=== PATIENT | female | born 2000 | race Caucasian/White ===

== ENCOUNTER 2021-08-15 08:00 | Outpatient (CLI) | payer OTHER | END 2021-08-15 23:59 | disposition home or self-care (01) | LOC: LAB.N 08:00 | PROVIDERS: ATTEND Physician Assistant Medical | DX: R05.9 Cough, unspecified (principal); Z20.822 Contact with and (suspected) exposure to COVID-19 ==

== ENCOUNTER 2021-09-26 08:00 | Outpatient (CLI) | payer OTHER | END 2021-09-26 23:59 | LOC: LAB.N 08:00 | PROVIDERS: ATTEND Physician Assistant Medical | DX: J06.9 Acute upper respiratory infection, unspecified (principal); Z20.822 Contact with and (suspected) exposure to COVID-19 ==

== ENCOUNTER 2021-12-03 10:32 | Emergency (ER) | payer OTHER ==
--- NOTE | 2021-12-03 11:42 | ED Physician Documentation ---
PD HPI SKIN - Stated complaint Stated Complaint: SPIDER BITE ON BACK - Chief complaint Chief Complaint: Wound - History obtained from History obtained from: Patient - History of Present Illness Timing - onset: Yesterday Timing - duration: Days (10/22) Timing - details: Abrupt onset (just noted bump left scapular area appearing like pimple initially, that grew bigger through day and was very tender. squeezed some purulence out of it this morning but still red and tender. She thought maybe spider bite initially. No prior similar.), Still present Location: Back (left suprascapular area.) Quality / character: Painful, Discolored (red), Raised Associated symptoms: No: Fever, Myalgias, N/V/D Similar symptoms before: Has not had sx before Recently seen: Not recently seen Review of Systems Constitutional: denies: Fever, Chills Nose: denies: Rhinorrhea / runny nose, Congestion Throat: denies: Sore throat Respiratory: denies: Cough PD PAST MEDICAL HISTORY - Past Medical History Past Medical History: No - Past Surgical History Past Surgical History: No - Present Medications Home Medications: Ambulatory Orders Medication Instructions Recorded Confirmed Ibuprofen [Motrin] 600 mg PO TID PRN #15 tab 12/03/21 Sulfamethox/Trimeth 800/160 1 each PO BID #14 tablet 12/03/21 [Bactrim Ds 800/160] - Allergies Allergies/Adverse Reactions: Allergies Allergy/AdvReac Type Severity Reaction Status Date / Time No Known Drug Allergies Allergy Verified 12/03/21 10:40 - Social History Does the pt smoke?: No Smoking Status: Never smoker Does the pt drink ETOH?: No Does the pt have substance abuse?: No - Immunizations Immunizations are current?: Yes - POLST Patient has POLST: No PD ED PE NORMAL - Vitals Vital signs reviewed: Yes - General General: Alert and oriented X 3, No acute distress, Well developed/nourished - Cardiac Cardiac: RRR, No murmur - Respiratory Respiratory: Clear bilaterally - Derm Derm: Normal color, Warm and dry, Other (left suprascapular area with 1 1/2 cm diameter area of redness, tender and raised with slight pointing but no drainage. It is raised but no fluctuance to it. ) Results - Vitals Vitals: Vital Signs - 24 hr 12/03/21 12/03/21 10:37 11:55 Temperature 36.4 C L 36.9 C Heart Rate 95 73 Respiratory 16 16 Rate Blood Pressure 141/74 H 124/80 O2 Saturation 100 100 Oxygen O2 Source Room air PD MEDICAL DECISION MAKING - ED course Complexity details: considered differential (c/w abscess that has been mostly drained at home. No open sore. WIll treat as staph. ), d/w patient Departure - Departure Disposition: Home, Self Care Clinical Impression: Abscess of back Condition: Stable Record reviewed to determine appropriate education?: Yes Instructions: ED Staph Infec Abx Tx Only Prescriptions: Sulfamethox/Trimeth 800/160 [Bactrim Ds 800/160] 1 each PO BID #14 tablet Ibuprofen [Motrin] 600 mg PO TID PRN #15 tab PRN Reason: Pain Comments: Warm ice compresses to the area to promote softening of the skin and possible better drainage. At this point it does not seem to have still enough collected fluid to need incision and drainage right now. We should be able to treat it with antibiotics alone and anti-inflammatories. Bactrim DS twice daily for 5 to 7 days until completely resolved. Ibuprofen 3 times a day for inflammation and pain. Add Tylenol if needed. Recheck if not better over the next several days and return if worsening. I transmitted your prescriptions to [facility] pharmacy in [place]. Discharge Date/Time: 12/03/21 12:05
[2021-12-03] MEDS ORDERED: SULFAMETH/TRIMETH DS 800/160 MG TABLET PO STA (11:50)
[2021-12-03] MEDS ORDERED: IBUPROFEN 600 MG TABLET PO STA (11:50)
[2021-12-03 11:56] VITALS: BP 124/80
== END 2021-12-03 12:05 | disposition home or self-care (01) ==
LOC: ED 10:32
DX: L02.212 Cutaneous abscess of back [any part, except buttock and flank] (principal)
CPT/HCPCS: 99282; A9270

== ENCOUNTER 2022-07-10 12:40 | Outpatient (CLI) | payer OTHER ==
[2022-07-10 18:08] LABS: BASOPHILS % (AUTO) 0.7 %; EOSINOPHILS # (AUTO) 0.1 10^3/uL (0.0-0.7); EOSINOPHILS % (AUTO) 1.5 %; HCT - HEMATOCRIT 41.9 % (37.0-47.0); HGB - HEMOGLOBIN 14.2 g/dL (12.0-16.0); LYMPHOCYTES # (AUTO) 1.6 10^3/uL (1.5-3.5); LYMPHOCYTES % (AUTO) 29.2 %; MEAN CORPUSCULAR HEMOGLOBIN 30.9 pg (27.0-31.0); MEAN CORPUSCULAR HGB CONC 33.9 g/dL (32.0-36.0); MEAN CORPUSCULAR VOLUME 91.1 fL (81.0-99.0); MEAN PLATELET VOLUME 10.4 fL (7.9-10.8); MONOCYTES # (AUTO) 0.4 10^3/uL (0.0-1.0); MONOCYTES % (AUTO) 6.6 %; NEUTROPHILS # (AUTO) 3.4 10^3/uL (1.5-6.6); NEUTROPHILS % (AUTO) 61.8 %; PLT - PLATELET COUNT 255 10^3/uL (130-450); WHITE BLOOD COUNT 5.4 x10^3/uL (4.8-10.8)
[2022-07-10 18:36] LABS: THYROID STIMULATING HORMONE 1.34 uIU/mL (0.34-5.60)
[2022-07-10 18:37] LABS: FREE T4 (FREE THYROXINE) 1.01 ng/dL (0.58-1.64)
[2022-07-10 18:56] LABS: ALBUMIN 4.4 g/dL (3.2-5.5); ALBUMIN/GLOBULIN RATIO 1.5 (1.0-2.2); ALKALINE PHOSPHATASE 51 IU/L (42-121); ALT ALANINE AMINOTRANSFERASE 13 IU/L (10-60); AST ASPARTATE AMINOTRANSFERASE 21 IU/L (10-42); BILIRUBIN,TOTAL 0.9 mg/dL (0.2-1.0); BUN - BLOOD UREA NITROGEN 12 mg/dL (6-20); CALCIUM 9.3 mg/dL (8.5-10.3); CARBON DIOXIDE - CO2 24 mmol/L (21-32); CHLORIDE 103 mmol/L (101-111); CHOLESTEROL 171 mg/dL; GFR - MDRD 71 (>89); GLUCOSE 88 mg/dL (70-100); HDL CHOLESTEROL 57 mg/dL; LDL CHOLESTEROL,CALCULATED 85 mg/dL; LDL/HDL RATIO 1.5 (<4.4); POTASSIUM 4.2 mmol/L (3.5-5.0); SODIUM 135 mmol/L (135-145); TOTAL PROTEIN 7.3 g/dL (6.7-8.2); TRIGLYCERIDES 145 mg/dL; VLDL CHOLESTEROL 29 mg/dL
== END 2022-07-10 12:41 | disposition home or self-care (01) ==
LOC: LAB.N 12:40
PROVIDERS: ATTEND Nurse Practitioner
DX: R53.83 Other fatigue (principal); Z13.220 Encounter for screening for lipoid disorders
CPT/HCPCS: 36415; 80053; 80061; 83721; 84439; 84443; 85025

== ENCOUNTER 2022-08-24 11:50 | Outpatient (CLI) | payer OTHER | END 2022-08-24 11:51 | disposition home or self-care (01) | LOC: LAB.N 11:50 | PROVIDERS: ATTEND Nurse Practitioner | DX: Z33.1 Pregnant state, incidental (principal) | CPT/HCPCS: 36415; 84702 ==

== ENCOUNTER 2022-08-31 14:50 | Outpatient (CLI) | payer OTHER ==
--- NOTE | 2022-09-03 17:22 | Ultrasound Report ---
PROCEDURE: OB First Trimester w/TV INDICATIONS: OUTSIDE/PRIOR DATING DATA: Last menstrual period (LMP): Unknown. LMP-based estimated date of delivery (PAPO): Unknown. First dating scan (date and location): 08/31/2022. Estimated date of delivery (PAPO) from first dating scan: Not applicable. TECHNIQUE: Real-time scanning was performed of the fetus and maternal pelvic organs, with image documentation. Endovaginal scanning was also performed to better visualize the fetus and maternal ovaries. COMPARISON: None FINDINGS: Intrauterine gestational sac is identified measuring 8 mm corresponding to 5 weeks 4 days. Yolk sac i s present. No definitively identified pole. No identified crown-rump length. No heart tones. Maternal organs: Ovaries demonstrate a left corpus luteal cyst.. IMPRESSION: Intrauterine gestational sac with yolk sac. No pole, crown-rump length or heart tones. Gestatio nal age of 5 weeks 4 days, short interval ultrasound follow-up is recommended to evaluate for pregnan cy progression as well as correlation with beta hCG level. No visualized ectopic . Reviewed by: Kaylen Prieto MD on 09/03/2022 5:20 PM PST Approved by: Kaylen Prieto MD on 09/03/2022 5:20 PM PST Station ID: [id number]
== END 2022-08-31 14:51 | disposition home or self-care (01) ==
LOC: DI 14:50
PROVIDERS: ATTEND Nurse Practitioner
DX: Z34.91 Encounter for supervision of normal pregnancy, unspecified, first trimester (principal); Z3A.01 Less than 8 weeks gestation of pregnancy
CPT/HCPCS: 36415; 84144; 84702

== ENCOUNTER 2023-01-14 10:30 | Outpatient (CLI) | payer OTHER ==
[2023-01-14 17:39] LABS: HCT - HEMATOCRIT 38.1 % (37.0-47.0); HGB - HEMOGLOBIN 12.4 g/dL (12.0-16.0); MEAN CORPUSCULAR HEMOGLOBIN 31.5 pg (27.0-31.0); MEAN CORPUSCULAR HGB CONC 32.5 g/dL (32.0-36.0); MEAN CORPUSCULAR VOLUME 96.7 fL (81.0-99.0); MEAN PLATELET VOLUME 10.3 fL (7.9-10.8); RED BLOOD COUNT 3.94 10^6/uL (4.20-5.40); WHITE BLOOD COUNT 9.8 x10^3/uL (4.8-10.8)
== END 2023-01-14 10:31 | disposition home or self-care (01) ==
LOC: LAB.N 10:30
PROVIDERS: ATTEND Nurse Practitioner Obstetrics & Gynecology
DX: Z36.9 Encounter for antenatal screening, unspecified (principal)
CPT/HCPCS: 36415; 82950; 85027

== ENCOUNTER 2023-04-27 09:02 | Inpatient (IN) | payer OTHER ==
[2023-04-27] MEDS ORDERED: METHYLERGONOVINE 0.2 MG/ML VIAL IM PRN (09:26)
[2023-04-27] MEDS ORDERED: miSOPROStoL 200 MCG TABLET PR PRN (09:26)
[2023-04-27] MEDS ORDERED: NIFEdipine 10 MG CAPSULE PO PRN (09:26)
[2023-04-27] MEDS ORDERED: hydrALAZINE INJ 20 MG/ML VIAL IVP PRN ×2 (09:26)
[2023-04-27] MEDS ORDERED: miSOPROStoL 200 MCG TABLET BC PRN (09:26)
[2023-04-27] MEDS ORDERED: lidocaine 1% 20 ML MDV ID PRN (09:26)
[2023-04-27] MEDS ORDERED: fentaNYL 100 MCG/2 ML VIAL IVP PRN (09:26)
[2023-04-27] MEDS ORDERED: LABETALOL 20 MG/4 ML SYRINGE IVP PRN ×3 (09:26)
[2023-04-27] MEDS ORDERED: OXYTOCIN/SODIUM CHLORIDE 500 ML IV PRN (09:26)
[2023-04-27] MEDS ORDERED: OXYTOCIN 10 UNIT/ML VIAL IM PRN (09:26)
[2023-04-27] MEDS ORDERED: CARBOPROST TROMETHAMINE 250 MCG/ML AMP IM PRN (09:26)
[2023-04-27] MEDS ORDERED: TRANEXAMIC ACID IN NACL 1,000 MG/100 ML BAG IV PRN (09:26)
[2023-04-27] MEDS ORDERED: SODIUM CHLORIDE FLUSH 0.9% 10 ML SYRINGE IVP PRN (09:26)
[2023-04-27] MEDS ORDERED: TERBUTALINE 1 MG/ML VIAL SUBQ PRN (09:26)
[2023-04-27 09:48] LABS: BASOPHILS % (AUTO) 0.1 %; HCT - HEMATOCRIT 37.4 % (37.0-47.0); HGB - HEMOGLOBIN 13.2 g/dL (12.0-16.0); LYMPHOCYTES % (AUTO) 4.2 %; MEAN CORPUSCULAR HGB CONC 35.3 g/dL (32.0-36.0); MEAN CORPUSCULAR VOLUME 90.6 fL (81.0-99.0); MEAN PLATELET VOLUME 10.5 fL (7.9-10.8); MONOCYTES % (AUTO) 3.3 %; NEUTROPHILS % (AUTO) 91.9 %; PLT - PLATELET COUNT 224 10^3/uL (130-450); RED BLOOD COUNT 4.13 10^6/uL (4.20-5.40); RED CELL DISTRIBUTION WIDTH 12.2 % (12.0-15.0); WHITE BLOOD COUNT 21.9 x10^3/uL (4.8-10.8)
--- NOTE | 2023-04-27 09:53 | HISTORY & PHYSICAL EXAMINATION ---
Admit History - Visit Reason Visit Reason: Contractions - : 1 Parity: 0 Premature: 0 Ectopic: 0 : 0 Care: positive: [facility] Risk/History: positive: None Complications This : positive: None Smoking Status: Never smoker - Mother's Labs Mother's Blood Type: positive: A Mother's RH: positive: Positive GBS: positive: Group B Step Negative Rubella Status: positive: Immune - HPI Diagnosis/Indication for NST: Other Vital Signs Temperature 36.8 C 04/27/23 09:13 Heart Rate 80 04/27/23 09:13 Respiratory Rate 18 04/27/23 09:13 Blood Pressure 126/74 04/27/23 09:13 Temperature 36.8 C 04/27/23 09:13 Heart Rate 80 04/27/23 09:13 Respiratory Rate 18 04/27/23 09:13 Blood Pressure 126/74 04/27/23 09:13 O2 Saturation If not protocol: Oxygen Flow, liters/minute - NST Procedure NST Procedure Start Time 23:53 Stop Time 00:20 Meds/Allgy - Home Medications Home Medications: Ambulatory Orders Medication Instructions Recorded Confirmed Ibuprofen [Motrin] 600 mg PO TID PRN #15 tab 12/03/21 Sulfamethox/Trimeth 800/160 1 each PO BID #14 tablet 12/03/21 [Bactrim Ds 800/160] - Allergies Allergies/Adverse Reactions: Allergies Allergy/AdvReac Type Severity Reaction Status Date / Time No Known Drug Allergies Allergy Verified 12/03/21 10:40 Review of Systems - Constitutional Constitutional: denies: Fatigue, Fever, Chills, Malaise - Eyes Eyes: denies: Blurred vision, Spots in vision, Dipolpia - Cardiovascular Cariovascular: denies: Irregular heart rate, Palpitations, Chest pain, Edema - Respiratory Respiratory: denies: Cough, Wheezing, SOB at rest - Gastrointestinal Gastrointestinal: reports: Nausea, Vomiting. denies: Constipation, Diarrhea - Genitourinary Genitourinary: denies: Dysuria - Integumentary Integumentary: denies: Rash, Pruritis - Neurological Neurological: denies: Headache - Psychiatric Psychiatric: reports: Anxiety. denies: Depression Physical - Abdominal Exam Vital Signs: Temp Pulse Resp BP Pulse Ox O2 Flow Rate 36.8 C 80 18 126/74 04/27/23 09:13 04/27/23 09:13 04/27/23 09:13 04/27/23 09:13 Contraction Frequency (min/apart): 3-5 Contraction Intensity: positive: Strong Uterine Resting Tone: positive: Soft - Monitoring Heart Rate Baseline: 140 Strip Review: positive: Category I - Presentation Presentation: positive: Vertex - Vaginal Exam Membranes: positive: Membranes intact Dilation (in cm): 8 Effacement (%): 90 Station: positive: 0 - Speculum Exam Speculum Exam Performed: positive: No Plan for Labor - Plan For Labor I expect patient to be DC'd or transferred within 96 hours.: Yes Plan for Labor: HPI: Edy is a 22yo @ 39.3wks gestation by LMP c/w first trimester ultrasound who presents to [facility] with complaints of contractions which have increased in frequency and intensity since 2am this morning after being discharged from triage with no cervical change. Upon arrival her cervix was noted to be 8/90/0 and vertex with intact membranes. She has been a patient of [facility] for the duration of her which has remained uncomplicated. She is will be admitted to [facility] for expectant management and she is requesting and epidural at this time. She is supported by her Nick today. 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 Never had a pap smear. No hx STI. 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 Partner in [employer]. Sexual behavior: Monogamous with male partner Nick. Stopped drinking alcohol due to . Denies current use of tobacco, marijuana or other recreational drugs. Reports that she is safe in current relationship. Family Hx: DM (mother); thyroid disease (aunt, grandmother); depression (mother, sister); mental illness (mother, grandmother) Denies family history of congenital anomalies, Cystic Fibrosis or chromosomal abnormalities. Allergies: NKDA Medications: PNV course: A positive, antibody negative Rubella immune, varicella immune Genetic screening - negative Thyroid function - WNL COVID vaccine - received and booster received beginning of the third trimester Tdap vaccine- received 3rd trimester Influenza vaccine- 08/2022 FAS WNL. Posterior placenta, no previa. 3VC. FLASH WNL. Size c/w dating (EFW 57%tile) Glucola 116 GBS negative Physical exam: Normocephalic, atraumatic Heart RRR w/o M/G/R Lungs CTAB Abdomen gravid, soft, nontender FHR baseline 140s, moderate variability, + accels, no decels Contractions palpate strong every 3-5 minutes with soft resting tone SVE 8/90/0. Vertex with intact membranes. Bilateral LE's no edema. Mood is good. Assessment: 22yo @ 39.3wks gestation by LMP c/w 1st trimester ultrasound Active labor FHR Category I GBS negative Plan: Admit to [facility] for expectant management. Anesthesia notified to present for placement of epidural per maternal request. Continuous monitoring. Anticipate .
[2023-04-27 09:55] LABS: SLIDE REVIEW? Indicated
[2023-04-27 09:57] LABS: ABNORMAL LYMPHS % (MANUAL) 0 %
[2023-04-27] MEDS ORDERED: ROPIVACAINE 0.2% 200 MG/100 ML BAG EP ONE (09:59)
[2023-04-27] MEDS ORDERED: LACTATED RINGERS 1,000 ML IV SCH (10:00)
[2023-04-27] MEDS: SODIUM CHLORIDE FLUSH 0.9% 10 ML SYRINGE IVP SCH (10:05)
[2023-04-27 10:15] LABS: BAND NEUTROPHILS % (MANUAL) 2 %; LYMPHOCYTES # (MANUAL) 0.9 10^3/uL (1.5-3.5); LYMPHOCYTES % (MANUAL) 4 %; MONOCYTES # (MANUAL) 0.2 10^3/uL (0.0-1.0); NEUTROPHILS # (MANUAL) 20.8 10^3/uL (1.5-6.6)
[2023-04-27 10:16] LABS: DIFFERENTIAL COMMENT MANUAL DIFFERENTIAL
[2023-04-27 10:17] LABS: PLATELET ESTIMATE, MANUAL NORMAL (130-450,000) (NORMAL); PLATELET MORPHOLOGY NORMAL APPEARANCE (NORMAL); RBC MORPHOLOGY (MULTIPLE) NORMAL APPEARANCE (NORMAL); WBC MORPHOLOGY (MULTIPLE) NORMAL APPEARANCE (NORMAL)
[2023-04-27] MEDS ORDERED: METOCLOPRAMIDE 10 MG/2 ML VIAL IVP PRN (10:58)
[2023-04-27] MEDS ORDERED: NALBUPHINE 10 MG/ML AMP IVP PRN (10:58)
[2023-04-27] MEDS ORDERED: ROPIVACAINE 0.2% 200 MG/100 ML BAG EP PRN (10:58)
[2023-04-27] MEDS ORDERED: NALOXONE 0.4 MG/ML VIAL IVP PRN (10:58)
[2023-04-27] MEDS ORDERED: ONDANSETRON 4 MG/2 ML VIAL IVP PRN (10:58)
[2023-04-27] MEDS ORDERED: diphenhydrAMINE INJ 50 MG/ML VIAL IVP PRN (10:58)
[2023-04-27] MEDS ORDERED: ePHEDrine 50 MG/ML VIAL IVP PRN (10:58)
--- NOTE | 2023-04-27 11:04 | ANESTHESIA ---
Pre-Anesthesia VS, & Labs - Diagnosis active labor - Procedure labor epidural Vital Signs: Temp Pulse Resp BP Pulse Ox O2 Flow Rate 36.8 C 80 18 126/74 04/27/23 09:13 04/27/23 09:13 04/27/23 09:13 04/27/23 09:13 Height: 5 ft 5 in Weight (kg): 75.75 kg Body Mass Index: 27.8 BMI Classification: Overweight - NPO Other (clears) - Is Patient ?: Yes - Lab Results Current Lab Results: Laboratory Tests 04/27/23 10:45: Blood Type Recheck A POSITIVE 04/27/23 09:33: WBC 21.9 H, RBC 4.13 L, Hgb 13.2, Hct 37.4, MCV 90.6, MCH 32.0 H , MCHC 35.3, RDW 12.2, Plt Count 224, MPV 10.5, Neut # (Auto) Not Reportable, Lymph # (Auto) Not Reportable, King # (Auto) Not Reportable, Eos # (Auto) Not Reportable, Baso # (Auto) Not Reportable, Absolute Nucleated RBC Not Reportable, Total Counted 100, Band Neuts % (Manual) 2, Abnorm Lymph % (Manual) 0, Nucleated RBC % Not Reportable, Neutrophils # (Manual) 20.8 H, Lymphocytes # (Manual) 0.9 L, Monocytes # (Manual) 0.2, Eosinophils # (Manual) 0.0, Basophils # (Manual) 0.0, Differential Comment MANUAL DIFFERENTIAL, Manual Slide Review Indicated, WBC Morphology NORMAL APPEARANCE, Platelet Estimate NORMAL (130-450,000), Platelet Morphology NORMAL APPEARANCE, RBC Morph Micro Appear NORMAL APPEARANCE 04/27/23 09:33: Blood Type A POSITIVE, Antibody Screen NEGATIVE Fish Bones: 04/27/23 09:33 Home Medications and Allergies Active Medications Carboprost Tromethamine (Carboprost Tromethamine 250 Mcg/Ml Amp) 250 mcg IM .ONCE PRN PRN Reason: Hemorrhage Diphenhydramine HCl (Diphenhydramine Inj 50 Mg/Ml Vial) 12.5 - 25 mg IVP Q6HR PRN PRN Reason: ITCHING Ephedrine Sulfate (Ephedrine 50 Mg/Ml Vial) 5 mg IVP Q5M PRN PRN Reason: For SBP<100;give until SBP>100 Fentanyl (Fentanyl 100 Mcg/2 Ml Vial) 50 mcg IVP Q1H PRN PRN Reason: Severe Pain (score 7-10) Hydralazine HCl (Hydralazine Inj 20 Mg/Ml Vial) 5 - 10 mg IVP Q20M PRN; Protocol PRN Reason: SBP> or= 160 OR DBP> or= 110 Hydralazine HCl (Hydralazine Inj 20 Mg/Ml Vial) 10 mg IVP .ONCE PRN; Protocol PRN Reason: SBP> or= 160 OR DBP> or= 110 Oxytocin/Sodium Chloride (Pitocin/Sodium Chloride) 500 mls @ 999 mls/hr IV PRN PRN; Protocol PRN Reason: POST- HEMORR PREVENTION Tranexamic Acid (Tranexamic 1,000 Mg/100ml-Nacl) 1,000 mg in 100 mls @ 600 mls/hr IV Q30M PRN PRN Reason: EBL >1200mL and within 3hr Lactated Ringer's (Lr) 1,000 mls @ 125 mls/hr IV .Q8H HARIKA Last Admin: 04/27/23 09:46 Dose: 125 mls/hr Ropivacaine (Naropin 0.2%) 200 mg in 100 mls @ 0 mls/hr EP PRN PRN; Protocol PRN Reason: PAIN Labetalol HCl (Labetalol 20 Mg/4 Ml Syringe) 20 - 80 mg IVP Q10M PRN; Protocol PRN Reason: SBP> or= 160 OR DBP> or= 110 Labetalol HCl (Labetalol 20 Mg/4 Ml Syringe) 20 mg IVP .ONCE PRN; Protocol PRN Reason: SBP> or= 160 OR DBP> or= 110 Labetalol HCl (Labetalol 20 Mg/4 Ml Syringe) 20 - 40 mg IVP Q10M PRN; Protocol PRN Reason: SBP> or= 160 OR DBP> or= 110 Lidocaine HCl (Lidocaine 1% 20 Ml Mdv) 20 ml ID .ONCE PRN PRN Reason: PERINEAL REPAIR Stop: 04/30/23 09:26 Methylergonovine Maleate (Methylergonovine 0.2 Mg/Ml Vial) 0.2 mg IM .ONCE PRN PRN Reason: Hemorrhage Metoclopramide HCl (Metoclopramide 10 Mg/2 Ml Vial) 10 mg IVP Q6HR PRN PRN Reason: Nausea / Vomiting Misoprostol (Misoprostol 200 Mcg Tablet) 600 mcg BC .ONCE PRN PRN Reason: Hemorrhage Misoprostol (Misoprostol 200 Mcg Tablet) 800 mcg MD .ONCE PRN PRN Reason: Hemorrhage Nalbuphine HCl (Nalbuphine 10 Mg/Ml Amp) 2.5 - 5 mg IVP Q4H PRN PRN Reason: ITCHING Naloxone HCl (Naloxone 0.4 Mg/Ml Vial) 0.1 mg IVP Q2M PRN PRN Reason: RR<8 Nifedipine (Nifedipine 10 Mg Capsule) 10 - 20 mg PO Q20M PRN; Protocol PRN Reason: SBP> or= 160 OR DBP> or= 110 Ondansetron HCl (Ondansetron 4 Mg/2 Ml Vial) 4 mg IVP Q6HR PRN PRN Reason: Nausea / Vomiting Oxytocin (Oxytocin 10 Unit/Ml Vial) 10 unit IM .ONCE PRN PRN Reason: Step One if no IV access. Sodium Chloride (Sodium Chloride Flush 0.9% 10 Ml Syringe) 10 ml IVP PRN PRN PRN Reason: NEEDED PER PROVIDER ORDERS Sodium Chloride (Sodium Chloride Flush 0.9% 10 Ml Syringe) 10 ml IVP Q8H HARIKA Terbutaline Sulfate (Terbutaline 1 Mg/Ml Vial) 0.25 mg SUBQ .ONCE PRN PRN Reason: Tachystole Allergies/Adverse Reactions: Allergies Allergy/AdvReac Type Severity Reaction Status Date / Time No Known Drug Allergies Allergy Verified 12/03/21 10:40 Anes History & Medical History - Anesthetic History Anesthesia Complications: reports: No previous complications - Medical History Cardiovascular: reports: None Pulmonary: reports: None Smoking Status: Never smoker History of Cancer?: No - Obstetrical History : 1 Parity: 0 Events: reports: None Complications: reports: None Exam General: Alert, Oriented x3, Cooperative, Moderate distress Dental: WNL Mouth Opening: Greater than 4 Fingerbreadths Neck Mobility: Normal Mallampati classification: I Thyromental Distance: greater than 6 cm Respiratory: Lungs clear Cardiovascular: Regular rate Plan Anesthesia Type: Epidural Consent for Procedure(s) Verified and Reviewed: Yes Code Status: Attempt Resuscitation ASA classification: 2-Mild systemic disease Is this case an emergency?: No
[2023-04-27] MEDS ORDERED: WITCH HAZEL/GLYCERIN 1 PAD TOP PRN (11:35)
[2023-04-27] MEDS ORDERED: HYDROCORTISONE 1% CREAM 28 GM TUBE PR PRN (11:35)
--- NOTE | 2023-04-27 11:45 | DELIVERY NOTE ---
Delivery Note - Labor Labor: positive: Spontaneous - Delivery Method Delivery Method: positive: Spontaneous vaginal delivery - Presentation Presentation: positive: Vertex, MARIANO - left occiput anterior - Nuchal Cord Nuchal Cord: positive: None - Amniotic Fluid Description Amniotic Fluid Description: positive: Clear - Episiotomy Type Episiotomy Type: positive: None - Laceration Laceration: positive: Other - Suture Suture Type: positive: Vicryl Suture Size: positive: 3-0 - Delivery Outcome Delivery Outcome: positive: Livebirth - : positive: Placed in direct skin contact with mother, Bulb syringe, Stimulated, Warmed, [place] used sex: positive: Male - Cord Cord: positive: 3 vessels - Placenta Placenta: positive: Intact, Spontaneous - Estimated Blood Loss Estimated Blood Loss (in cc): 300 - Post Delivery Events Post Delivery Events: positive: No post delivery events - Delivery Comments (Free Text/Narrative) Delivery Comments (Free Text/Narrative): Labor: This 22yo @ 39.3wks gestation by LMP presented on 04/27/2023 in active labor. Cervix was 8/90/0 and vertex with intact membranes. FHR pattern demonstrated Category I pattern throughout labor. Normal labor course. Epidural was placed per maternal request. Pt progressed to c/c/+2 at 1043 with onset of active pushing at 1046. : Normal SVB of viable male infant on 04/27/2023 @ 1051 with amniotic membranes intact and removed over head after delivery. No nuchal cord. The was placed on maternal abdomen, stimulated, dried, and placed skin to skin. 's were 9/9 at 1 and 5 minutes respectively. Pitocin administered via IV for hemostasis. The umbillical cord was allowed to stop pulsating at which time it was doubly clamped by CNM and cut by FOB. 3VC. Cord blood was obtained. Fundal massage and gentle cord traction applied for active management of the third stage. Placenta delivered spontaneously and intact at 1057. EBL 300mL. Fourth stage: Uterine fundus firm and there is no excessive bleeding. The perineum, vagina, and cervix were inspected and found to have 2mm surface level laceration at left lower labia minora which was repaired using a 3-[address]-1 needle with 1 interrupted suture. Tissues well approximated. initiated. Family bonding well. Both mother and baby were left in stable condition.
[2023-04-27] MEDS: ACETAMINOPHEN 500 MG TABLET PO SCH ×2 (12:58→21:11)
[2023-04-27] MEDS: IBUPROFEN 800 MG TABLET PO SCH ×2 (12:58→19:30)
[2023-04-27] MEDS: DOCUSATE SODIUM 100 MG CAPSULE PO SCH (21:15)
[2023-04-28] MEDS: IBUPROFEN 800 MG TABLET PO SCH ×2 (01:28→09:35)
[2023-04-28] MEDS: SODIUM CHLORIDE FLUSH 0.9% 10 ML SYRINGE IVP SCH (01:28)
[2023-04-28] MEDS: ACETAMINOPHEN 500 MG TABLET PO SCH (05:03)
[2023-04-28 08:05] VITALS: BP 132/79
[2023-04-28] MEDS: DOCUSATE SODIUM 100 MG CAPSULE PO SCH (09:35)
--- NOTE | 2023-04-28 11:09 | Discharge Plan ---
Discharge Plan Problem Reviewed?: Yes Disposition: Home, Self Care Condition: Good Diet: Regular Activity Restrictions: No Restrictions Shower Restrictions: No Driving Restrictions: No Weight Bearing: Full Weight Instruction Topics: Vaginal After No Smoking: If you smoke, Please STOP! Call for help. Follow-up with: Gloria Resendiz CNM, ARNP [Provider Admit Priv/Credential] - 1 Week ( telephone visit on May 07 @ 2:30pm with Gloria Resendiz.)
--- NOTE | 2023-04-28 11:16 | DISCHARGE SUMMARY ---
Discharge Summary Condition at Discharge: Good Discharge Disposition: 01 Home, Self Care - HOSPITAL COURSE Hospital Course: Date of Admission: 04/27/2023 Date if Discharge: 04/28/2023 Diagnosis on Admission: 1. 22yo @ 39.3wks gestation by LMP c/w 1st trimester ultrasound 2. Active labor 3. FHR Category I 4. GBS negative Diagnosis on Discharge: 1. 22yo PPD#1 s/p TSVB viable male 2. 3. Normal recovery Brief history: She is a patient of [facility] who presented on 04/27/2023 in active labor. She was noted to be 8/90/0 and vertex with intact membranes. She was admitted and received and epidural per her request. She progressed spontaneously to deliver a viable male on 04/27/2023 @ 1051 over intact perineum with 1 minor left labial laceration which was repaired in standard fashion with 1 interrupted suture. EBL 300mL. Apgars were 9/9 at 1 and 5 minutes respectively. En caul delivery with clear fluid after . She has been doing well in her course. She is ambulating and tolerating a regular diet. She is urinating without difficulty and her lochia is normal. Her pain is well controlled with oral medications. She will be discharged home today on day #1 with instructions to continue taking her vitamin while and to continue taking ibuprofen and tylenol over the counter as needed for pain management. We also discussed initiating her buspirone 10mg secondary to her anxiety. She was taking this prior to and feels that it helped significantly with her baseline anxiety but she stopped in by her choice. She feels like she will restart the medication after the first 6 weeks . We closely reviewed warning s/sx of anxiety and depression and when to reach out. She feels well supported and her mom and will both be with her. She has been given precautions to call if she has any worsening fevers, chills, abdominal pain, increased bleeding or foul smelling vaginal lochia. Physical exam: Normocephalic, atraumatic. Heart RRR w/o M/G/R, lungs CTAB, abdomen soft and nontender with fundus firm at U, perineum intact, repair without edema, light lochia rubra, bilateral LE's no edema, mood is good. - ALLERGIES Allergies/Adverse Reactions: Allergies Allergy/AdvReac Type Severity Reaction Status Date / Time No Known Drug Allergies Allergy Verified 12/03/21 10:40 - MEDICATIONS Home Medications: Ambulatory Orders Medication Instructions Recorded Confirmed Ibuprofen [Motrin] 600 mg PO TID PRN #15 tab 12/03/21 Sulfamethox/Trimeth 800/160 1 each PO BID #14 tablet 12/03/21 [Bactrim Ds 800/160] - LABS Result Diagrams: 04/27/23 09:33
--- NOTE | 2023-04-28 15:13 | Labor Flowsheet ---
Labor Flowsheet Datetime Report Generated by CPN: 04/28/2023 15:12 Datetime: 04/28/2023 08:05 VITAL SIGNS NBP Sys/Annabella/Mean (mmHg): 132 : 79 : 89 Pulse: 81 COMMUNICATION LaborFlag: Labor Datetime: 04/27/2023 15:38 Stage of : Labor Datetime: 04/27/2023 12:30 SpO2 (%): 99 Datetime: 04/27/2023 10:47 STAGE 2 Pushing: Urge to Push; Involuntary Pushing Pushing Position: Pushing with Contractions Pushing Progress: Descent with Pushing Datetime: 04/27/2023 10:44 VAGINAL EXAM Dilatation (cm): 10.0 Effacement (%): 100 Station: 1 Exam by: A. Astrid Cervix, Consistency: Soft Cervix, Position: Anterior Vaginal Exam Comments: feeling urges to push Datetime: 04/27/2023 10:23 UTERINE ACTIVITY Monitor Mode: External Frequency (min): 3-4 Quality: Strong Duration (sec): 60-70 Pattern: Normal: <= 5 Contractions in 10 Minutes Resting Tone (Palpate): Relaxed ASSESSMENT A Monitor Mode: Telemetry FHR Baseline Rate : 140 FHR Baseline Changes: No Baseline Change Variability: Moderate 6-25 bpm Accelerations: 15X15 Decelerations: Variable Category: Category I Pain Presence: Intermittent Pain Type: Contraction Pain Relief Measures: Epidural Given; Comfort Measures Pain Coping: Breathing Through Contractions Pain Assessment Comments: some relief with the epidural Membrane Status: Intact Oxygen Method: Room Air Patient Position/Activity: Left Tilt Comfort Measures: Breathing/Relaxation; Coaching Datetime: 04/27/2023 10:19 Epidural Procedure: Loading Dose Epidural Procedure Other: Single Dose Datetime: 04/27/2023 10:00 PROCEDURE TIME OUT Procedure Verify: Correct Patient Identity; Correct Side and Site are Marked; Accurate Procedure Co nsent Form; Agreement on Procedure to be Done; Correct Patient Position ANESTHESIA Anesthesia Plans: Epidural Epidural Positioning: Sitting Datetime: 04/27/2023 09:54 Anesthesia Comments: consenting patient Datetime: 04/27/2023 09:35 PAIN Pain Scale: 8 PATIENT CARE IV/Blood Work: IV Started; Labs Drawn with IV Start Consults: Anesthesia Datetime: 04/27/2023 09:15 Vaginal Bleeding: Normal Show Datetime: 04/27/2023 08:35 Membranes Ruptured Date/Time: 04/27/2023 10:51 Membranes Rupture Method: Spontaneous Amniotic Fluid Color: Clear Amniotic Fluid Amount: Small Datetime: 04/27/2023 02:44 MEDICATIONS Antiemetics/Antacids: Zofran (mg) @ 4 Datetime: 04/27/2023 00:09 Presentation 'A': Cephalic Lie 'A': Longitudinal Datetime: 04/26/2023 23:53 Respirations: 16 Temperature (C): 36.4 Temperature Route: Oral Pain Location: Abdomen
== END 2023-04-28 14:15 | disposition home or self-care (01) | DRG 807 ==
LOC: WFO 09:02 → FBP 09:04 → WFO 09:26 → OBSVTOIN 09:26 → FBP 09:32
PROVIDERS: ADMIT Nurse Practitioner Obstetrics & Gynecology; ATTEND Nurse Practitioner Obstetrics & Gynecology
PROC: 10E0XZZ Delivery of Products of Conception, External Approach (ICD-10-PCS; principal; 2023-04-27)
PROC: 0UQMXZZ Repair Vulva, External Approach (ICD-10-PCS; 2023-04-27)
DX: O70.0 First degree perineal laceration during delivery (principal); Z37.0 Single live birth; O99.344 Other mental disorders complicating childbirth; F41.9 Anxiety disorder, unspecified; Z3A.39 39 weeks gestation of pregnancy
CPT/HCPCS: 85025; 86850; 86900; 86901; A9270; J7120; 96365; 96366; 99215

== ENCOUNTER 2024-03-26 12:00 | Outpatient (CLI) | payer OTHER ==
--- NOTE | 2024-03-26 18:14 | XRAY Report ---
PROCEDURE: Finger(s) RT INDICATIONS: CONTUSION OF RIGHT RING FINGER TECHNIQUE: AP hand, 2 views of the fourth finger(s) acquired. COMPARISON: None. FINDINGS: Bones: No fractures or dislocations. No suspicious bony lesions. Soft tissues: No suspicious soft tissue calcifications or masses. IMPRESSION: No acute bony abnormality. Reviewed by: Eliezer Vieira MD on 03/26/2024 6:12 PM PDT Approved by: Eliezer Vieira MD on 03/26/2024 6:12 PM PDT Station ID: [id number]
== END 2024-03-26 13:01 | disposition home or self-care (01) ==
LOC: DI.N 12:00
PROVIDERS: ATTEND Family Medicine
DX: S60.041A Contusion of right ring finger without damage to nail, initial encounter (principal)